=== PATIENT | male | born 1985 | race Caucasian/White ===

== ENCOUNTER 2016-06-21 14:57 | Emergency (ER) | payer OTHER ==
[~2016-06-21] VITALS: Ht 175.3 cm; Wt 108.9 kg
[2016-06-21 15:01] VITALS: BP 132/69
== END 2016-06-21 15:31 | disposition home or self-care (01) ==
LOC: ER 14:57
DX: Z47.89 Encounter for other orthopedic aftercare (principal); S62.291D Other fracture of first metacarpal bone, right hand, subsequent encounter for fracture with routine healing; X58.XXXD Exposure to other specified factors, subsequent encounter; Z98.890 Other specified postprocedural states